=== PATIENT | female | born 1970 | race African-American/Black ===

== ENCOUNTER 2017-06-15 05:12 | Inpatient (IN) | payer OTHER ==
[2017-06-10 12:28] VITALS: BMI 25.0
--- NOTE | 2017-06-15 07:05 | HP ---
History & Physical Update - History History: No Change - Physical Physical: No Change - Assessment Assessment: No Change - Plan Plan: No Change
--- NOTE | 2017-06-15 07:12 | OP ---
Operative Note - Note: Operative Date: 06/15/17 Pre-Operative Diagnosis: Leiomyomatous Uterus Operation: Abdominal Myomectomy Findings: 5 cm myoma and 2 x1 cm myomas removed Post-Operative Diagnosis: Same as Pre-op Surgeon: Anne Dawn Health Information Administrator: Amaury Howell Anesthesia: General Estimated Blood Loss (mls): 25 Operative Report Dictated: Yes
[2017-06-15] MEDS ORDERED: MIDAZOLAM HCL 2 MG/2 ML SINGLE DOSE VIAL ONE ×2 (07:53)
[2017-06-15] MEDS ORDERED: ROPIVACAINE HCL 0.5% 30ML VIAL ONE (07:54)
[2017-06-15] MEDS ORDERED: PROPOFOL 20 ML ONE ×3 (08:19→09:12)
[2017-06-15] MEDS ORDERED: ceFAZolin SODIUM 1 GM VIAL ONE (08:19)
[2017-06-15] MEDS ORDERED: LIDOCAINE HCL/PF 2% SDV 5ML VIAL ONE (08:19)
[2017-06-15] MEDS ORDERED: ROCURONIUM BROMIDE 50 MG/5 ML VIAL ONE (08:19)
[2017-06-15] MEDS: ceFAZolin SODIUM 1 GM VIAL IVPB ONE ×2 (08:30→17:33)
[2017-06-15] MEDS ORDERED: DEXAMETHASONE SOD PHOSPHATE 4 MG/1 ML VIAL ONE (09:06)
[2017-06-15] MEDS ORDERED: NEOSTIGMINE METHYLSULFATE 0.5 MG/ML - 10 ML MDV ONE (09:07)
[2017-06-15] MEDS ORDERED: GLYCOPYRROLATE 0.2 MG/1 ML VIAL ONE (09:07)
[2017-06-15] MEDS ORDERED: HYDROmorphone HCL CARPU-JECT 2 MG/1 ML DISP.SYRIN ONE ×2 (09:39→10:00)
[2017-06-15] MEDS: HYDROmorphone HCL CARPU-JECT 1 MG/1 ML DISP.SYRIN IVPUSH PRN ×4 (09:39→10:09)
--- NOTE | 2017-06-15 11:00 | OP ---
DATE OF OPERATION: 06/15/2017 PREOPERATIVE DIAGNOSIS: Leiomyomatous uterus. OPERATION: Abdominal myomectomy. POSTOPERATIVE DIAGNOSIS: Leiomyomatous uterus. SURGEON: Anne Dawn MD [employer] OPERATOR: DONATO Jimenez. unavailable. ANESTHESIA: General. ANESTHESIOLOGIST: Dr. Soto DESCRIPTION OF PROCEDURE: The patient was taken to the operating room and placed in supine position, prepped and draped in the usual sterile fashion. A time-out was performed in accordance with hospital regulations. Zaidi catheter was inserted into the bladder. Pfannenstiel skin incision was made with a scalpel. Cautery was then used to open layers of the abdominal wall to the fascia. The fascia was cut in the midline, and cautery was then used to open the fascia in smiling fashion. Kochers were then used to bluntly and sharply dissect the rectus muscle off the fascia. The muscles were split in the midline. Peritoneal cavity was then entered and carried upward and downward. Bladder was packed out of the operative field. A leiomyomatous uterus was exteriorized. Palpation of the uterus revealed a posterior myoma approximately 5 cm in size. Cautery was then used to make a transverse incision in the posterior aspect of the uterus. The myoma was then exteriorized and removed using sharp and blunt technique. Other myomas were removed in the anterior portion of the uterus and also in the posterior aspect of the uterus, and 2-0 Vicryl was then used to close those incisions. The transverse incision was closed in layers using 0 Vicryl suture continuous and locking 2 layers and then imbricating with 0 Vicryl suture and imbricating stitch using 0 Vicryl. Hemostasis was achieved. Interceed was then placed. Uterus anteriorized. Abdominal cavity cleaned with clean laparotomy pads. Peritoneum closed using 0 Vicryl suture. The fascia was then closed using 0 Vicryl suture in 2 parts. The skin was then closed using 3-0 Vicryl in subcuticular fashion. The wound was washed and dressed. The patient tolerated the procedure well and was taken to the recovery room in stable condition. Estimated blood loss was 25 mL. Kat MENDEZ/[id number]
[2017-06-15] MEDS: LACTATED RINGERS SOLUTION 1,000 ML IV SCH (12:30)
[2017-06-15] MEDS: IBUPROFEN 800 MG/8 ML IJ IVPB PRN (15:03)
[2017-06-15] MEDS: CEFAZOLIN 1 GM PUSH 1 GM/10 ML DISP.SYRIN IVPUSH SCH (17:35)
[2017-06-15] MEDS: HYDROmorphone HCL CARPU-JECT 2 MG/1 ML DISP.SYRIN IVPB PRN (18:23)
[2017-06-16] MEDS: IBUPROFEN 800 MG/8 ML IJ IVPB PRN (01:43)
[2017-06-16] MEDS ORDERED: CEFAZOLIN 1 GM PUSH 1 GM/10 ML DISP.SYRIN IVPUSH ONE (02:00)
[2017-06-16] MEDS: ceFAZolin SODIUM 1 GM VIAL IVPB ONE (02:53)
[2017-06-16] MEDS: HYDROmorphone HCL CARPU-JECT 2 MG/1 ML DISP.SYRIN IVPB PRN ×2 (04:46→07:50)
[2017-06-16] MEDS ORDERED: oxyCODONE HCL 5 MG TABLET PO PRN (07:06)
[2017-06-16] MEDS: ENOXAPARIN NA (PORCINE) 40 MG/0.4 ML DISP.SYRIN SQ SCH (09:14)
--- NOTE | 2017-06-16 10:05 | PN ---
Progress Note (short form) - Note Progress Note: Post op day31.S/p Abdominal myomectomy under GA with TAP block uneventful.Patient stable and has little pain for which she is on medication.No any anesthesia related problem.Patient DC from the anesthesia care.
--- NOTE | 2017-06-16 10:16 | PN ---
Progress Note, Physician Chief Complaint: Post op History of Present Illness: 46 yo status post abdominal myomectomy, seen and evaluated. She's out of bed to chair and c/o incision pain. - Current Medication List Current Medications: Active Medications Acetaminophen (Tylenol -) 650 mg PO Q4H PRN PRN Reason: PAIN LEVEL 1 - 3 Enoxaparin Sodium (Lovenox -) 40 mg SQ DAILY [facility] Last Admin: 06/16/17 09:14 Dose: 40 mg Hydromorphone HCl (Dilaudid Injection -) 2 mg IVPB Q4H PRN PRN Reason: PAIN LEVEL 7 - 10 Last Admin: 06/16/17 07:50 Dose: 2 mg Lactated Ringer's (Lactated Ringers Solution) 1,000 mls @ 125 mls/hr IV ASDIR [facility] Last Admin: 06/15/17 12:30 Dose: 0 mls Ibuprofen (Caldolor Injection -) 800 mg IVPB Q6H PRN PRN Reason: Pain - Pacu Last Admin: 06/16/17 01:43 Dose: 800 mg Oxycodone HCl (Roxicodone -) 5 mg PO Q4H PRN PRN Reason: PAIN LEVEL 4 - 6 Oxycodone HCl (Roxicodone -) 10 mg PO Q4H PRN PRN Reason: PAIN LEVEL 7 - 10 - Objective Vital Signs: Vital Signs Temperature 98.8 F 06/16/17 07:06 Pulse Rate 61 06/16/17 07:06 Respiratory Rate 18 06/16/17 07:06 Blood Pressure 99/51 06/16/17 07:06 O2 Sat by Pulse Oximetry (%) 99 06/15/17 21:00 Constitutional: Yes: Well Nourished Eyes: Yes: Conjunctiva Clear HENT: Yes: Atraumatic Neck: Yes: Supple Cardiovascular: Yes: Regular Rate and Rhythm Respiratory: Yes: Regular Gastrointestinal: Yes: Normal Bowel Sounds Genitourinary: No: Vaginal Bleeding Breast(s): Yes: WNL Wound/Incision: Yes: Clean/Dry, Dressing Dry and Intact Neurological: Yes: Alert, Oriented ...Motor Strength: WNL Psychiatric: Yes: Alert, Oriented Problem List - Problems (1) Status post myomectomy Code(s): Z98.890 - OTHER SPECIFIED POSTPROCEDURAL STATES Assessment/Plan Status post abdominal myomectomy Stable Analgesia as needed Continue routine post op care
[2017-06-16] MEDS ORDERED: ONDANSETRON 4 MG/2 ML VIAL IVPUSH PRN (10:37)
[2017-06-16] MEDS: IBUPROFEN 600 MG TABLET (FP) PO PRN ×3 (12:59→21:39)
[2017-06-16] MEDS: ACETAMINOPHEN 325 MG TABLET (FP) PO PRN ×2 (13:00→16:28)
--- NOTE | 2017-06-16 13:39 | PATH ---
Surgical Pathology Report Patient Name: SHERRI VALLE [facility]. Rec. #: [id number] /Age/Gender: 1970 (Age: 46) / F Account: [id number] Location: [facility] OBS/SCRIPT READER Taken: 06/15/2017 Received: 06/15/2017 Reported: 06/16/2017 Physicians: Anne Dawn M.D. Specimen(s) Received FIBROIDS Clinical History Leiomyomatous uterus Final Diagnosis UTERUS, FIBROIDS, ABDOMINAL MYOMECTOMY: LEIOMYOMATA. Electronically Signed Jacy Hernandez M.D. Gross Description Received in formalin labeled "fibroids," is a 36 g aggregate of 3 banuelos, irregular, rubbery nodules ranging from 0.9 x 0.6 x 0.6 cm to 4.8 x 4.0 x 3.3 cm. The largest fibroid is partially surfaced by red, possible endometrium. Sectioning of the two smaller fibroids displays banuelos, firm parenchyma with whorled architecture. Sectioning of the largest fibroid reveals foci of degeneration. Manager Research sections are submitted in 6 cassettes as follows: 1-entirely submitted two smaller fibroids; 8-3-[id number] largest fibroid. /06/15/201706/15/2017
[2017-06-16 18:12] LABS: BASO % 0.3 % (0-2.0); EOS % 0.1 % (0-4.5); HEMATOCRIT 23.3 % (32.4-45.2); HEMOGLOBIN 7.3 GM/dL (10.7-15.3); LYMPH % 15.6 % (8-40); MCH 21.6 pg (25.7-33.7); MCHC 31.5 g/dl (32.0-36.0); MEAN CELL VOLUME 68.6 fl (80-96); MEAN PLT VOLUME 9.4 fl (7.5-11.1); MONO % 3.5 % (3.8-10.2); NEUT % 80.5 % (42.8-82.8); PLATELET COUNT 266 K/MM3 (134-434); RDW 21.9 % (11.6-15.6); WHITE BLOOD COUNT 9.1 K/mm3 (4.0-10.0)
[2017-06-16 18:22] LABS: ADD RBC MORPHOLOGY YES
[2017-06-16] MEDS: CEFAZOLIN 1 GM PUSH 1 GM/10 ML DISP.SYRIN IVPUSH SCH (19:09)
[2017-06-16] MEDS: LACTATED RINGERS SOLUTION 1,000 ML IV SCH (19:10)
[2017-06-16] MEDS: oxyCODONE HCL 5 MG TABLET PO PRN (19:32)
[2017-06-16] MEDS: SIMETHICONE 80 MG TAB.CHEW (FP) PO PRN (19:34)
[2017-06-16 20:13] LABS: ANISOCYTOSIS 2+; TARGET CELLS FEW
[2017-06-16] MEDS ORDERED: DOCUSATE SODIUM 100 MG CAPSULE (FP) PO PRN (20:39)
[2017-06-16] MEDS ORDERED: ZOLPIDEM TARTRATE 5 MG TABLET PO PRN (20:39)
[2017-06-17] MEDS: oxyCODONE HCL 5 MG TABLET PO PRN ×2 (00:12→06:45)
[2017-06-17] MEDS: SIMETHICONE 80 MG TAB.CHEW (FP) PO PRN ×2 (00:12→06:44)
[2017-06-17] MEDS: ACETAMINOPHEN 325 MG TABLET (FP) PO PRN ×2 (00:13→06:44)
--- NOTE | 2017-06-17 03:51 | DS ---
Physical Exam-CLINICAL SUPPORT SPECIALIST Vital Signs: Vital Signs Temperature 98.5 F 06/16/17 22:00 Pulse Rate 78 06/16/17 22:00 Respiratory Rate 18 06/16/17 22:00 Blood Pressure 109/57 06/16/17 22:00 O2 Sat by Pulse Oximetry (%) 99 06/15/17 21:00 Constitutional: Yes: Well Nourished, No Distress Gastrointestinal: Yes: WNL, Normal Bowel Sounds, Soft External Genitalia: Yes: Normal Musculoskeletal: Yes: WNL Extremities: Yes: WNL Labs: CBC, BMP 06/16/17 17:45 Discharge Summary Reason For Visit: LEIOMYOMATOUS UTERUS Current Active Problems Status post myomectomy (Acute) Procedures: Principal: Abdominal myomectomy Hospital Course: unremarkable Condition: Good - Instructions Diet, Activity, Other Instructions: Dr. Anne Dawn It Service Delivery Manager discharge instructions Physical activity Resume your normal everyday activity as tolerated no heavy lifting or exercise until seen by your surgeon. You may walk unlimited shania of and climb stairs. You may resume driving the car when you feel safe and comfortable behind the wheel. No sexual activity as instructed by Dr. Dawn. Wound care If you have a bandage, leave it on, and keep dry for 48-72 hours. After that time discard the outer bandage. If they are tapes on the skin under the out of bandage leave them in place. They will peel off in the next 7 to 10 days. Do Not Peel them off. You may shower the day after surgery. If there are tapes present on the skin, you may shower over them. Diet There are no dietary restrictions. Eat healthy, high-fiber foods. Drink 6 to 8 glasses of liquid each day. This will assist in keeping your bowels are regular. Pain management You may take Tylenol or acetaminophen or Ibuprofen (for example, Motrin, Advil etc.) from my pain prescription medication is ordered should be taken as prescribed for moderate to severe pain. Call Dr. Dawn for any of the following: Severe pain not relieved by medication Fever of 101 or higher Excessive bleeding or drainage on dressing Inability to urinate Call the office at [phone] for an appointment in seven days. Disposition: HOME - Home Medications Comprehensive Discharge Medication List: Ambulatory Orders Ibuprofen [Motrin -] 800 mg PO PRN PRN 06/10/17 Oxycodone HCl/Acetaminophen [Percocet 5-325 mg Tablet] 1 tab PO Q6H #20 tablet MDD 6 06/17/17
--- NOTE | 2017-06-17 07:11 | PN ---
Progress Note (SOAP) - Subjective Chief Complaint: Pt doing well + flatus + BM - Current Medications Current Medications: Active Medications Acetaminophen (Tylenol -) 650 mg PO Q4H PRN PRN Reason: PAIN LEVEL 1 - 3 Last Admin: 06/17/17 06:44 Dose: 650 mg Docusate Sodium (Colace -) 100 mg PO BID PRN PRN Reason: CONSTIPATION Last Admin: 06/16/17 21:39 Dose: 100 mg Enoxaparin Sodium (Lovenox -) 40 mg SQ DAILY [facility] Last Admin: 06/16/17 09:14 Dose: 40 mg Ibuprofen (Motrin -) 600 mg PO Q6H PRN PRN Reason: FEVER Last Admin: 06/16/17 21:39 Dose: 600 mg Ondansetron HCl (Zofran Injection) 4 mg IVPUSH Q4H PRN PRN Reason: NAUSEA AND/OR VOMITING Last Admin: 06/16/17 10:42 Dose: 4 mg Oxycodone HCl (Roxicodone -) 5 mg PO Q4H PRN PRN Reason: PAIN LEVEL 4 - 6 Last Admin: 06/16/17 15:31 Dose: 5 mg Oxycodone HCl (Roxicodone -) 10 mg PO Q4H PRN PRN Reason: PAIN LEVEL 7 - 10 Last Admin: 06/17/17 06:45 Dose: 10 mg Simethicone (Mylicon -) 80 mg PO Q4H PRN PRN Reason: GAS Last Admin: 06/17/17 06:44 Dose: 80 mg Zolpidem Tartrate (Ambien -) 10 mg PO HS PRN PRN Reason: INSOMNIA Stop: 06/17/17 20:38 - Objective Vital Signs: Vital Signs Temperature 98.5 F 06/16/17 22:00 Pulse Rate 78 06/16/17 22:00 Respiratory Rate 18 06/16/17 22:00 Blood Pressure 109/57 06/16/17 22:00 O2 Sat by Pulse Oximetry (%) 99 06/15/17 21:00 Constitutional: Yes: Well Nourished, No Distress Gastrointestinal: Yes: WNL, Normal Bowel Sounds, Soft Musculoskeletal: Yes: WNL Extremities: Yes: WNL Labs Lab Results: CBC, BMP 06/16/17 17:45 Problem List - Problems (1) Status post myomectomy Code(s): Z98.890 - OTHER SPECIFIED POSTPROCEDURAL STATES Assessment/Plan POD 2 Anemia sp abdominal myomectomy Plan Feso4 dc home percocet RTO 1 week
[2017-06-17 08:09] VITALS: BP 89/60; PULSE 75; TEMP 99
[2017-06-17 08:46] LABS: BASO % 0.3 % (0-2.0); EOS % 0.7 % (0-4.5); LYMPH % 24.3 % (8-40); MCH 21.5 pg (25.7-33.7); MCHC 31.9 g/dl (32.0-36.0); MEAN CELL VOLUME 67.5 fl (80-96); MEAN PLT VOLUME 8.3 fl (7.5-11.1); MONO % 5.8 % (3.8-10.2); NEUT % 68.9 % (42.8-82.8); PLATELET COUNT 263 K/MM3 (134-434); RBC 3.27 M/mm3 (3.60-5.2); WHITE BLOOD COUNT 6.5 K/mm3 (4.0-10.0)
[2017-06-17] MEDS: ENOXAPARIN NA (PORCINE) 40 MG/0.4 ML DISP.SYRIN SQ SCH (09:27)
== END 2017-06-17 09:45 | disposition home or self-care (01) | DRG 519 ==
LOC: JSAMEDAYSX 05:12 → EDSTATUS 09:30 → J3W 13:00
PROVIDERS: ADMIT Obstetrics & Gynecology; ATTEND Obstetrics & Gynecology
PROC: 0UB90ZZ Excision of Uterus, Open Approach (ICD-10-PCS; principal; 2017-06-15 08:00)
DX: D25.9 Leiomyoma of uterus, unspecified (principal); D64.9 Anemia, unspecified
CPT/HCPCS: 36415; 84703; 85025; 86850; 86900; 86901; 88305-TC; 94010; 94760